=== PATIENT | female | born 1955 | race Caucasian/White ===

== ENCOUNTER → 2024-05-20 | Outpatient (CLI) | payer MEDICARE, SELFPAY ==
--- NOTE | 2024-05-20 15:30 | XR_ITS ---
Examination: CT left ankle, without contrast. 2-D sagittal reconstructions. 2-D coronal reconstructions. 3-D reconstructions. Date and time of exam:May 20, 2024 1516 hours INDICATIONS: Patient fell one month ago with injury to the ankle, ankle pain CTDI: vol (mGy):4.75 DLP: (mGycm):100 Technique: Multiple 1.25 mm axial sections of the left ankle have been obtained. 2-D sagittal and coronal reconstructions have been obtained. 3-D reconstructions have been obtained. Low dose protocols were performed. One or more of the following dose reduction techniques were used; automated exposure control, adjustment of the mA and/or KV according to patient size, use of iterative reconstruction technique. Findings: Moderate osteopenia 10 mm avulsion fracture off the fibular tip Distal tibia intact as well as dome the talus calcaneus cuboid navicular and cuneiforms No avascular necrosis IMPRESSION: 10 mm avulsion fracture off the fibular tip
== END | disposition home or self-care (01) ==
PROVIDERS: Referring Provider Podiatrist; Visit Provider Podiatrist
DX: S82.492A Other fracture of shaft of left fibula, initial encounter for closed fracture (principal); W19.XXXA Unspecified fall, initial encounter
CPT/HCPCS: 73700

== ENCOUNTER → 2024-06-23 | Outpatient (CLI) | payer MEDICARE, SELFPAY ==
--- NOTE | 2024-06-23 16:21 | XR_ITS ---
EXAMINATION: Ankle, left 3 views . Technique: Ankle AP, oblique, lateral 3 views Date and time of exam: June 23, 2024 1757 hours INDICATIONS: Ankle fracture 8 weeks ago. FINDINGS: Ununited small fracture fibular tip No ankle dislocation Tibia intact IMPRESSION: Ununited small fracture fibular tip
== END | disposition home or self-care (01) ==
LOC: SDIM 16:02
PROVIDERS: Referring Provider Podiatrist; Visit Provider Podiatrist
DX: S82.492A Other fracture of shaft of left fibula, initial encounter for closed fracture (principal); X58.XXXA Exposure to other specified factors, initial encounter
CPT/HCPCS: 73610

== ENCOUNTER → 2024-12-18 | Outpatient (CLI) | payer MEDICARE, SELFPAY ==
--- NOTE | 2024-12-18 08:45 | XR_ITS ---
Examination: Pelvic ultrasound, transabdominal, complete Technique: Transabdominal ultrasound of the pelvis performed using grayscale imaging Date and time of exam: December 18, 2024, 0916 hours INDICATIONS: Postmenopausal bleeding beginning 8 weeks ago with pelvic pain. FINDINGS: Uterus 6.1 cm endometrial stripe abnormally thickened 12 mm, cyst in the endometrium 10 x 8 mm Right ovary 1.7 cm arterial flow Left ovary 1.6 cm arterial flow IMPRESSION: Abnormally thickened endometrial stripe, differential would include endometrial hyperplasia, early malignant neoplasm of the uterus Recommend MRI pelvis follow-up pre and postcontrast
--- NOTE | 2024-12-18 08:45 | XR_ITS ---
Examination: Transvaginal ultrasound of the pelvis, complete Technique: Transvaginal sonographic images pelvis performed using wilcox scale imaging Exam date and time: December 18, 2024, 0939 hours INDICATIONS: Postmenopausal bleeding episode 8 weeks ago FINDINGS: Uterus 5.5 cm endometrial stripe thickened 1.2 cm multiple cystlike areas in the endometrium the largest 9 mm Ovaries obscured by bowel gas IMPRESSION: . Abnormal thickened endometrium, recommend MRI pelvis follow-up pre and postcontrast
--- NOTE | 2024-12-18 08:45 | XR_ITS ---
Examination: Abdomen sonogram, complete Date and time of exam: December 18, 2024, 0924 hours INDICATIONS: Postmenopausal bleeding beginning 8 weeks ago. Technique: Multiple real-time grayscale transabdominal sonographic images of the abdomen have been obtained. Findings: Negative for gallstones Gallbladder wall borderline thickened 0.4 cm Common bile duct 0.5 cm Pancreatic head 2.0 cm Aorta not enlarged. Liver 18.5 cm fatty infiltration no focal liver lesions Normal hepatopetal portal venous flow Patent IVC Right kidney 9.7 cm renal cortex 2.0 cm Left kidney 11.6 cm renal cortex 2.1 cm Small benign left renal cyst Moderate renal scar formation Spleen 9.4 cm IMPRESSION: Borderline thickening gallbladder wall, consider HIDA scan follow-up Moderate hepatomegaly Moderate renal scar formation
== END | disposition home or self-care (01) ==
LOC: CDIM 08:52
PROVIDERS: PCP Family Medicine; Referring Provider Nurse Practitioner Family; Visit Provider Nurse Practitioner Family
DX: R93.89 Abnormal findings on diagnostic imaging of other specified body structures (principal); N28.89 Other specified disorders of kidney and ureter; R16.0 Hepatomegaly, not elsewhere classified; K82.8 Other specified diseases of gallbladder
CPT/HCPCS: 76700; 76830; 76856

== ENCOUNTER → 2025-02-03 | Outpatient (CLI) | payer MEDICARE, SELFPAY ==
--- NOTE | 2025-02-03 10:30 | XR_ITS ---
Examination: Screening digital mammography, bilateral Computer aided detection 3-D breast Tomosynthesis, bilateral Date and time of exam: 02/03/2025 10:05 a.m. Comparisons: 07/29/2023 Indications: Screening Technique: Nonmagnified MLO, CC views of the breasts to been obtained, reconstructed from 3-D Tomosynthesis images. R2 computer aided detection program utilized for evaluation of suspicious masses and/or abnormal calcifications. 3-D Tomosynthesis images obtained. Technologist: Findings: There are scattered areas of fibroglandular density. No evidence of abnormal masses or suspicious calcifications. Bilateral subpectoral silicone implants appear intact. Impression: BI-RADS category 2: Benign findings Recommend 1 year follow-up mammogram
== END | disposition home or self-care (01) ==
PROVIDERS: Referring Provider Obstetrics & Gynecology; Visit Provider Obstetrics & Gynecology
DX: Z12.31 Encounter for screening mammogram for malignant neoplasm of breast (principal); R92.323 Mammographic fibroglandular density, bilateral breasts
CPT/HCPCS: 77063; 77067